=== PATIENT | male | born 1980 | race Caucasian/White ===

== ENCOUNTER 2025-02-27 14:08 | Outpatient (CLI) | payer OTHER, SELFPAY ==
--- NOTE | ~2025-02-27 | XR_ITS ---
EXAMINATION: XR hand RT min 3V, 02/27/2025 14:24 [employer] HISTORY: S60.559A - Superficial foreign body of unspecified hand, ... COMPARISON: No comparisons available. Findings: Remote fracture of the second metacarpal, no acute fracture is identified. No significant degenerative changes. Metallic radiopaque foreign bodies within the soft tissues adjacent to the proximal aspects of the proximal phalanges second and third digits. Impression: Foreign bodies detailed above Reviewed, dictated and finalized at location P. [employer] Impression: Foreign bodies detailed above
== END 2025-02-27 14:09 | disposition home or self-care (01) ==
PROVIDERS: Visit Provider Plastic Surgery
DX: S62.300 Unspecified fracture of second metacarpal bone, right hand (principal); X58.XXXS Exposure to other specified factors, sequela; M79.5 Residual foreign body in soft tissue
CPT/HCPCS: 73130